=== PATIENT | female | born 1965 | race Caucasian/White ===

== ENCOUNTER → 2017-02-01 | Outpatient (CLI) | payer OTHER ==
--- NOTE | 2017-02-01 15:53 | KCIC ---
PROCEDURE Bilateral digital screening mammogram. HISTORY 51-year-old female presents for screening mammography. TECHNIQUE Full field digital craniocaudal and mediolateral oblique views of both breasts were obtained. Computer-aided detection is applied. COMPARISON 10/07/2014 FINDINGS Breast parenchymal composition: Level C - Heterogeneously dense. There is asymmetry within the posterior medial aspect of the right breast on the craniocaudal projection, increased compared to the prior study. There is no correlate on the mediolateral oblique projection, favoring summation artifact. There is no suspicious calcification or architectural distortion within either breast IMPRESSION BI-RADS Category 0: Needs additional imaging. Further evaluation with a spot compression craniocaudal view and full field true lateral view of the right breast to assess asymmetry within the posterior medial breast likely due to summation artifact is recommended. The patient will be contacted to return for additional imaging This study was interpreted with the benefit of Computerized Aided Detection (CAD). Mammography is not 100% sensitive in detecting breast cancer. Therefore, a self breast exam and a clinical breast exam are very important. A negative mammogram does not negate a clinically suspicious finding and should not result in a delay in biopsying a clinically suspicious abnormality. Electronically signed by: Mirella Garcia (February 01, 2017 15:51:39)
== END | disposition home or self-care (01) ==
LOC: KCIC MAMMO 15:12
PROVIDERS: ATTEND Obstetrics & Gynecology
DX: Z12.31 Encounter for screening mammogram for malignant neoplasm of breast (principal)
CPT/HCPCS: G0202; 77067